=== PATIENT | male | born 1980 | race Caucasian/White ===

== ENCOUNTER 2017-12-21 09:13 | Emergency (ER) | payer SELFPAY ==
--- NOTE | 2017-12-21 09:27 | ER Report ---
History and Physical Time Seen By MD: 09:27 Hx. of Stated Complaint: PATIENT HAS BEEN SICK WITH COLD AND HAS BEEN CONGESTED FOR THE PAST FEW MONTHS; STATES THAT SOMETIMES IT GETS HIM DOWN FOR A LONG TIME AND JUST WANTS TO GET THIS ALL FIGURED OUT HPI/ROS CHIEF COMPLAINT: chest pain and trouble breathing. HISTORY OF PRESENT ILLNESS: This is a 37 year old male. He has been sick with upper respiratory symptoms and chest congestion for a couple of months now. He says that he was starting to get better, but then worsened again this week. Cough with production of phlegm. He has seen some blood streaks occasionally with this. He has a history of this happening in the past. He has some chest pain, central and to the left side. Feels short of breath at times, does not worsen with exertion. Having some subjective fevers. No nausea or vomiting. No sweats. No trouble with bowel or bladder. Allergies: Coded Allergies: No Known Drug Allergies (Unverified , 12/21/17) Home Meds Active Scripts Ibuprofen (IBUPROFEN) 800 Mg Tablet, 1 TAB PO Q8H Y for PAIN, #90 TAB 0 Refills Prov:CR ARTEAGA MD 12/21/17 Benzonatate 100 Mg Cap (TESSALON PERLE 100 MG CAP) 100 Mg Capsule, 100 MG PO TID Y for COUGH, #15 CAP 0 Refills Prov:CR ARTEAGA MD 12/21/17 Prednisone (PREDNISONE) 20 Mg Tablet, 40 MG PO QDAY for 5 Days, #10 TAB 0 Refills Prov:CR ARTEAGA MD 12/21/17 Doxycycline Hyclate (DOXYCYCLINE HYCLATE) 100 Mg Tablet, 100 MG PO BID, #20 TAB 0 Refills Prov:CR ARTEAGA MD 12/21/17 Reviewed Nurses Notes: Yes ( ) Hx Substance Use Disorder: No Hx Alcohol Use: Yes (OCC.) Constitutional Vital Sign - Last 24 Hours 12/21/17 12/21/17 12/21/17 12/21/17 09:13 09:18 09:19 09:43 Temp 97.6 Pulse ??? 94 97 Resp 18 B/P (MAP) 143/94 (110) 143/94 Pulse Ox 96 95 O2 Delivery Room Air 12/21/17 12/21/17 10:13 10:32 Pulse 107 B/P (MAP) 111/77 (88) Pulse Ox 94 Physical Exam General Appearance: The patient is alert. No acute distress. Eyes: Pupils are equal, round. No pallor, injection or icterus. ENT: Mucous membranes are moist. Normal oral mucosa. Posterior oropharynx with slight erythema, and post nasal drainage. Mild erythema in left nasal passage. Normal tympanic membranes and canals. Neck: Supple and non tender. No lymphadenopathy. Respiratory: Lungs are clear to auscultation, with some mild wheezing. There are no retractions or accessory muscle use. Cardiovascular: Regular rate and rhythm. No murmurs, gallops or rubs. Normal capillary refill. Gastrointestinal: Abdomen is soft and non tender. Nondistended. Normal active bowel sounds. Neurological: Alert and oriented x3. Skin: Warm and dry. No rashes. DIFFERENTIAL DIAGNOSIS: After history and physical exam, differential diagnosis was considered for patient with cough, congestion symptoms with some shortness of breath. This will either be a pulmonary infectious process or upper extremity infection. Based on the biphasic distribution where he was improving then worsening again, could've started as a viral process and likely now secondary bacterial process. Medical Decision Making Data Points Result Diagram: 12/21/17 1006 12/21/17 1006 Laboratory Hematology Test 12/21/17 10:06 Red Blood Count 5.17 M/uL (4.00-5.60) Mean Corpuscular Volume 90.1 fL (80.0-96.0) Mean Corpuscular Hemoglobin 31.1 pg (26.0-33.0) Mean Corpuscular Hemoglobin Concent 34.5 g/dL (32.0-36.0) Red Cell Distribution Width 13.4 % (11.5-14.5) Mean Platelet Volume 7.8 fL (7.2-11.1) Neutrophils (%) (Auto) 70.8 % (39.4-72.5) Lymphocytes (%) (Auto) 20.2 % (17.6-49.6) Monocytes (%) (Auto) 4.4 % (4.1-12.4) Eosinophils (%) (Auto) 3.6 % (0.4-6.7) Basophils (%) (Auto) 1.0 % (0.3-1.4) Nucleated RBC Relative Count (auto) 0.1 /100WBC Neutrophils # (Auto) 8.0 K/uL (2.0-7.4) Lymphocytes # (Auto) 2.3 K/uL (1.3-3.6) Monocytes # (Auto) 0.5 K/uL (0.3-1.0) Eosinophils # (Auto) 0.4 K/uL (0.0-0.5) Basophils # (Auto) 0.1 K/uL (0.0-0.1) Nucleated RBC Absolute Count (auto) 0.01 K/uL Sodium Level 142 mmol/L (137-145) Potassium Level 4.3 mmol/L (3.5-5.0) Chloride Level 102 mmol/L (98-107) Carbon Dioxide Level 30 mmol/L (22-30) Blood Urea Nitrogen 9 mg/dl (9-21) Creatinine 0.80 mg/dl (0.66-1.25) Glomerular Filtration Rate Calc > 60.0 Random Glucose 110 mg/dl (75-110) Calcium Level 9.4 mg/dl (8.4-10.2) Total Bilirubin 0.6 mg/dl (0.2-1.3) Aspartate Amino Transf (AST/SGOT) 24 U/L (0-35) Alanine Aminotransferase (ALT/SGPT) 29 U/L (0-56) Alkaline Phosphatase 147 U/L (0-126) Total Protein 7.7 g/dl (6.3-8.2) Albumin 3.9 g/dl (3.5-5.0) Chemistry Test 12/21/17 10:06 White Blood Count 11.3 k/uL (4.5-11.0) Red Blood Count 5.17 M/uL (4.00-5.60) Hemoglobin 16.1 g/dL (14.0-18.0) Hematocrit 46.6 % (42.0-52.0) Mean Corpuscular Volume 90.1 fL (80.0-96.0) Mean Corpuscular Hemoglobin 31.1 pg (26.0-33.0) Mean Corpuscular Hemoglobin Concent 34.5 g/dL (32.0-36.0) Red Cell Distribution Width 13.4 % (11.5-14.5) Platelet Count 621 K/uL (150-450) Mean Platelet Volume 7.8 fL (7.2-11.1) Neutrophils (%) (Auto) 70.8 % (39.4-72.5) Lymphocytes (%) (Auto) 20.2 % (17.6-49.6) Monocytes (%) (Auto) 4.4 % (4.1-12.4) Eosinophils (%) (Auto) 3.6 % (0.4-6.7) Basophils (%) (Auto) 1.0 % (0.3-1.4) Nucleated RBC Relative Count (auto) 0.1 /100WBC Neutrophils # (Auto) 8.0 K/uL (2.0-7.4) Lymphocytes # (Auto) 2.3 K/uL (1.3-3.6) Monocytes # (Auto) 0.5 K/uL (0.3-1.0) Eosinophils # (Auto) 0.4 K/uL (0.0-0.5) Basophils # (Auto) 0.1 K/uL (0.0-0.1) Nucleated RBC Absolute Count (auto) 0.01 K/uL Glomerular Filtration Rate Calc > 60.0 Calcium Level 9.4 mg/dl (8.4-10.2) Total Bilirubin 0.6 mg/dl (0.2-1.3) Aspartate Amino Transf (AST/SGOT) 24 U/L (0-35) Alanine Aminotransferase (ALT/SGPT) 29 U/L (0-56) Alkaline Phosphatase 147 U/L (0-126) Total Protein 7.7 g/dl (6.3-8.2) Albumin 3.9 g/dl (3.5-5.0) EKG/Imaging Imaging CHEST PA AND LAT History: cough, congestion FINDINGS: Comparison studies: None. Tubes and Lines: None. Lungs and pleura: There is a consolidation in the lingula in the left lung well visualized in both projections. Lungs are otherwise well-aerated. No pleural effusions are seen. Mediastinum: normal. Cardiac silhouette: normal . Osseous structures: Unremarkable for age . IMPRESSION: Lingular pneumonia. I would suggest a follow-up radiograph in several months to ensure complete resolution. Report Dictated By: Ovi Henriquez MD at 12/21/2017 10:51 AM ED Course/Re-evaluation Clinical Indication for ER IV: IV Access ED Course Labs do show mild elevation of the white blood cell count was slightly shift but normal metabolic panel. X-ray came back showing a lingular pneumonia. Discussed all this with the patient and we'll start him on azithromycin. We also talked about problems breathing and history of smoking and we'll start him on some prednisone as well. We'll also give him benzonatate for cough. He requested something for pain but nothing narcotic base of gave him ibuprofen 800 mg and we'll give him a prescription for this as well. Decision to Disposition Date: Dec 21, 2017 Decision to Disposition Time: 11:01 Depart Departure Latest Vital Signs Vital Signs Date Time Temp Pulse Resp B/P (MAP) Pulse Ox O2 Delivery O2 Flow Rate FiO2 12/21/17 10:32 111/77 (88) 12/21/17 10:13 107 94 12/21/17 09:19 97.6 18 Room Air Impression: Primary Impression: Community acquired bacterial pneumonia Condition: Improved Disposition: HOME OR SELF-CARE New Scripts Ibuprofen (IBUPROFEN) 800 Mg Tablet 1 TAB PO Q8H Y for PAIN, #90 TAB 0 Refills Prov: CR ARTEAGA MD 12/21/17 Benzonatate 100 Mg Cap (TESSALON PERLE 100 MG CAP) 100 Mg Capsule 100 MG PO TID Y for COUGH, #15 CAP 0 Refills Prov: CR ARTEAGA MD 12/21/17 Prednisone (PREDNISONE) 20 Mg Tablet 40 MG PO QDAY for 5 Days, #10 TAB 0 Refills Prov: CR ARTEAGA MD 12/21/17 Doxycycline Hyclate (DOXYCYCLINE HYCLATE) 100 Mg Tablet 100 MG PO BID, #20 TAB 0 Refills Prov: CR ARTEAGA MD 12/21/17 Patient Instructions: Community Acquired Pneumonia (ED) Additional Instructions: You have pneumonia. Take the antibiotic Doxycycline hyclate 100mg twice a day for 10 days. Take the steroid Prednisone 20mg tablets, 2 tablets once a day for 5 days. Tessalon Perles, one every 8 hours as needed for cough. Ibuprofen 800mg tablets, one every 8 hours as needed for pain. Follow-up with your regular doctor in the next few months for re-evaluation to make sure this is clearing, sooner if not getting better in the next 5-7 days. CR ARTEAGA MD Dec 21, 2017 09:27
[2017-12-21] MEDS ORDERED: IBUPROFEN 800 MG TAB PO ONE (09:40)
[2017-12-21 10:14] LABS: PLATELET COUNT, AUTOMATED 621 K/uL (150-450)
[2017-12-21 10:32] VITALS: BP 111/77
--- NOTE | 2017-12-21 10:57 | RADIOLOGY IMAGING REPORT ---
FACILITY: [facility] [place]IENT NAME: Ross Sherman : 1980 MR: [id number] V: [id number] EXAM DATE: ORDERING PHYSICIAN: CR ARTEAGA TECHNOLOGIST: [place] [facility] [place] Patient: Ross Sherman : 1980 Visit/Account:[id number] Date of Sevice: 12/21/2017 CHEST PA AND LAT History: cough, congestion FINDINGS: Comparison studies: None. Tubes and Lines: None. Lungs and pleura: There is a consolidation in the lingula in the left lung well visualized in both projections. Lungs are otherwise well-aerated. No pleural effusions are seen. Mediastinum: normal. Cardiac silhouette: normal . Osseous structures: Unremarkable for age . IMPRESSION: Lingular pneumonia. I would suggest a follow-up radiograph in several months to ensure complete res olution. Report Dictated By: Ovi Henriquez MD at 12/21/2017 10:51 AM Report E-Signed By: Ovi Henriquez MD at 12/21/2017 10:53 AM WSN:[id number]
[2017-12-21] MEDS ORDERED: BENZ100C4 PO (11:03)
[2017-12-21] MEDS ORDERED: IBUP800T37 PO (11:03)
[2017-12-21] MEDS ORDERED: PRED20TA6 PO (11:03)
[2017-12-21] MEDS ORDERED: DOXY-179 PO (11:03)
== END 2017-12-21 11:16 | disposition home or self-care (01) ==
LOC: ER 09:33
DX: J18.9 Pneumonia, unspecified organism (principal)
CPT/HCPCS: 36415; 82040; 82247; 82310; 82374; 82435; 82565; 82947; 84075; 84132; 84155; 84295; 84450; 84460; 84520; 85025; 99283

== ENCOUNTER 2018-08-19 19:53 | Emergency (ER) | payer MEDICAID ==
[~2018-08-19 19:53] MED LIST: BENZ100C4 PO; DOXY-179 PO; IBUP800T37 PO; PRED20TA6 PO
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
[2018-08-19] MEDS ORDERED: LISI20TA29 PO (20:03)
[2018-08-19] MEDS ORDERED: NS(*) 0.9% 1000 ML BAG 1,000 ML IV ONE (20:19)
[2018-08-19] MEDS ORDERED: ALBUTEROL/IPRATROPIUM 3 ML NEB NEB ONE (20:20)
[2018-08-19 20:44] LABS: PLATELET COUNT, AUTOMATED 457 K/uL (150-450)
--- NOTE | 2018-08-19 21:02 | EKG ---
FACILITY: [facility] PATIENT NAME: ERVIN DECKER : [id number] MR: [id number] V: [id number] EXAM DATE: ORDERING PHYSICIAN: ZELDA RUVALCABA TECHNOLOGIST: KAMRYN Hunt Reason : LIGHTHEADNESS Blood Pressure : / mmHG Vent. Rate : 096 BPM Atrial Rate : 096 BPM P-R Int : 148 ms QRS Dur : 102 ms QT Int : 384 ms P-R-T Axes : 065 057 049 degrees QTc Int : 485 ms Normal sinus rhythm Prolonged QT No ST-T abnormalities No previous ECGs available Confirmed by CIERRA ALVARES ([id number]) on 08/19/2018 10:12:24 PM Referred By: Confirmed By:CIERRA ALVARES
--- NOTE | 2018-08-19 21:33 | RADIOLOGY IMAGING REPORT ---
FACILITY: [facility] - [place] PATIENT NAME: Ross Sherman : 1980 MR: [id number] V: [id number] EXAM DATE: ORDERING PHYSICIAN: ZELDA RUVALCABA TECHNOLOGIST: Location: [facility] - [place] Patient: Ross Sherman : 1980 Visit/Account:[id number] Date of Sevice: 08/19/2018 TWO VIEW CHEST 08/19/2018 8:19 PM. INDICATION: Lightheadedness. COMPARISON: 12/21/2017. FINDINGS: Lungs are well-expanded. New small areas of patchy opacification in the right midlung. Pr eviously seen lingular opacity has resolved. No pneumothorax or pleural effusion. Heart size is nor mal. IMPRESSION: New patchy opacities in the right midlung suspicious for infectious or inflammatory proce ss. Consider follow-up in several months to assess resolution. Report Dictated By: Man Mayer MD at 08/19/2018 9:27 PM Report E-Signed By: Man Mayer MD at 08/19/2018 9:30 PM WSN:[id number]
[2018-08-19] MEDS ORDERED: AZIT-18 PO (21:55)
[2018-08-19 22:00] VITALS: BP 141/96
[2018-08-19] MEDS ORDERED: ALBUTEROL 8 GM INHALER INH ONE (22:00)
[2018-08-19] MEDS ORDERED: AZITHROMYCIN 250 MG TAB PO ONE (22:00)
== END 2018-08-19 22:16 | disposition home or self-care (01) ==
LOC: ER 20:14
DX: J15.9 Unspecified bacterial pneumonia (principal)
CPT/HCPCS: 71046; 81001; 84484; 85025; 87502; 93005; 94640; 99284; J7030; J7620; Q0144; 82040; 82247; 82310; 82374; 82435; 82565; 82947; 84075; 84132; 84155; 84295; 84450; 84460; 84520

== ENCOUNTER → 2018-09-13 | Outpatient (CLI) | payer MEDICAID ==
[~2018-09-13] MED LIST changes: +AZIT-18 PO; +LISI20TA29 PO
== END ==
LOC: RESP 19:21
PROVIDERS: ATTEND Family Medicine
DX: G47.33 Obstructive sleep apnea (adult) (pediatric) (principal); G47.36 Sleep related hypoventilation in conditions classified elsewhere

== ENCOUNTER → 2018-10-04 | Outpatient (CLI) | payer MEDICAID | LOC: RESP 19:40 | PROVIDERS: ATTEND Physician Assistant | DX: G47.33 Obstructive sleep apnea (adult) (pediatric) (principal); G47.36 Sleep related hypoventilation in conditions classified elsewhere ==